=== PATIENT | female | born 1975 | race Caucasian/White ===

== ENCOUNTER 2017-08-09 21:42 | Emergency (ER) | payer OTHER ==
[2017-08-09 21:51] VITALS: RESP 16
[2017-08-09] MEDS ORDERED: NS 1,000 ML IV ONE (22:03)
--- NOTE | 2017-08-09 22:03 | EDPHY ---
H & P Stated Complaint: shaky, visual probs, face numb since chiropractic adjustment 5 d ago HPI/ROS: HPI CHIEF COMPLAINT: Shaky, eye shaking, lid shaking, numbness and tingling to face , neck pressure, headache HISTORY OF PRESENT ILLNESS: This patient is a 41-year-old female, significant past medical history for mi meningitis, HSV, otherwise healthy she presents emergency room with a constellation of symptoms. Patient reports to me that she had chiropractic neck manipulation for neck pain done on Friday. Early this week the next day after this manipulation she developed some facial numbness and tingling to her bilateral maxillary regions also eye fluttering as well as lead fluttering, and a headache. Denies any significant neck pain. Additionally she reports to me on Friday the day before neck manipulation she went to [facility] for chest pressure and shortness of breath and had a workup. She was released from there after she had a negative troponin D- dimer and nonischemic EKG. She distally tells me that she has been seen by a neurologist for rather defer neurological symptoms. They are unsure exactly what was causing her problem so they placed her on gabapentin. She followed up with her doctor Dr. Char Leroy with Infectious Disease who follows her for viral meningitis decided not to steak the gabapentin. She now presents to the emergency room stating that she needs to rule out vertebral artery dissection given that she had neck manipulation on Friday and developed worsening headache, eye fluttering, facial numbness and tingling. She is concerned she may have a vertebral artery dissection or posterior circulation stroke. Here in emergency room she appears very anxious. She is nontoxic. She has a normal neurological exam on exam. Past Medical History: Viral meningitis HSV Past Surgical History: No recent surgery Social History: Denies daily use of drugs alcohol tobacco products. Family History: Noncontributory ROS REVIEW OF SYSTEMS: A comprehensive 10 point review of systems is otherwise negative aside from elements mentioned in the history of present illness. Exam Constitutional appears well nontoxic, anxious, triage nursing summary reviewed , vital signs reviewed, awake/alert. Eyes normal conjunctivae and sclera, EOMI, PERRLA. HENT neck exam no carotid bruit visible. normal inspection, atraumatic, moist mucus membranes, no epistaxis, neck supple/ no meningismus, no raccoon eyes. Respiratory clear to auscultation bilaterally, normal breath sounds, no respiratory distress, no wheezing. Cardiovascular rate normal, regular rhythm, no murmur, no edema, distal pulses normal. Gastrointestinal soft, non-tender, no rebound, no guarding, normal bowel sounds, no distension, no pulsatile mass. Genitourinary no CVA tenderness. Musculoskeletal no midline vertebral tenderness, full range of motion, no calf swelling, no tenderness of extremities, no meningismus, good pulses, neurovascularly intact. Skin pink, warm, & dry, no rash, skin atraumatic. Neurologic I do not appreciate a focal neuro deficit, awake, alert and oriented x 3, AAOx3, moves all 4 extremities equally, motor intact, sensory intact, CN II-XII intact, normal cerebellar, normal vision, normal speech. Psychiatric normal mood/affect. Heme/Lymph/Immune no lymphadenopathy. Differential Diagnosis: Includes but is not limited to in a particular order acute anxiety, panic attack, electrolyte disturbance, thyroid dysfunction, vertebral artery dissection, posterior circulation stroke. Medical Decision Making: Plan for this patient IV establishment blood draw, IV fluid bolus, 1 mg Ativan for anxiety, CT angiogram head and neck, check thyroid , electrolytes, troponin, EKG. Re-evaluate. Re-evaluation: CT scan angiogram head and neck with IV contrast for vertebral artery dissection , posterior circulation stroke is unremarkable there is no dissection no stroke no thrombus no bleed. Unremarkable CT angiogram head and neck report called to me by Dr. Josué Whitt. Source: Patient - Personal History LMP (Females 10-55): 8-14 Days Ago Current Tetanus/Diphtheria Vaccine: Yes Current Tetanus Diphtheria and Acellular Pertussis (TDAP): Yes Tetanus Vaccine Date: 2009 - Medical/Surgical History Hx Asthma: No Hx Chronic Respiratory Disease: No Hx Diabetes: No Hx Cardiac Disease: No Hx Renal Disease: No Hx Cirrhosis: No Hx Alcoholism: No Hx HIV/AIDS: No Hx Splenectomy or Spleen Trauma: No Other PMH: viral meningitis x 3, cervical stenosis - Social History Smoking Status: Never smoked Constitutional: Initial Vital Signs Temperature (C) 36.5 C 08/09/17 21:47 Heart Rate 69 08/09/17 21:47 Respiratory Rate 16 08/09/17 21:47 Blood Pressure 140/82 H 08/09/17 21:47 O2 Sat (%) 100 08/09/17 21:47 O2 Delivery Mode Room Air Allergies/Adverse Reactions: ceftriaxone sodium [From Rocephin] Allergy (Severe, Verified 08/09/17 21:44) Swelling/neck,face,throat vancomycin [Vancomycin] Allergy (Severe, Verified 08/09/17 21:44) Swelling/neck,face,throat Home Medications: Medication Instructions Recorded Ferrous Sulfate [Ferrous Sulf 325 325 mg PO HS 04/18/16 MG (*)] Herbals/Supplements -Info Only 1 ea PO DAILY 04/18/16 Ibuprofen [Motrin (*)] 200 mg PO DAILY PRN 04/18/16 Valacyclovir HCl [Valtrex] 1,000 mg PO TID #39 tab 04/19/16 Medical Decision Making - Diagnostics Imaging Results: Imaging Impressions Head CTA 08/09/17 22:23 Impression: 1. No evidence for stenosis or dissection in either carotid artery or vertebral artery. 2. Degenerative disk and degenerative joint disease cervical spine most pronounced at C5-C6. Measurement of carotid stenosis is based on the residual internal carotid diameter with [place] Symptomatic Carotid Endarterectomy Trial (NASCET) based stenosis levels. CT Angiogram of the Brain Clinical Indications: Headache neck pain.. Symptoms since chiropractic adjustment on Friday. . Technique: CT angiogram of the brain was performed with the uneventful intravenous administration of 85 mL Isovue-370 contrast. Multiplanar reconstructions including 3D reconstructions performed and evaluated on [employer] workstation in order to better evaluate the knik of [place] vessels. Images were manipulated by the radiologist at the computer workstation. Dose reduction techniques were utilized. Findings: Major vessels of the knik of [place] are adequately displayed, demonstrating no evidence of aneurysm, vascular malformation, flow-limiting stenosis, or occlusion. Bilateral cavernous internal carotid arteries and vertebrobasilar system demonstrates no evidence of flow-limiting stenosis, aneurysm, occlusion or dissection. Superior sagittal sinus, transverse sinuses, and major veins demonstrate no evidence of intraluminal thrombi. Impression: Negative CT angiogram of the brain. Results called and discussed with Vince Prince MD at 08/09/2017 23:45. Neck CTA 08/09/17 22:23 Impression: 1. No evidence for stenosis or dissection in either carotid artery or vertebral artery. 2. Degenerative disk and degenerative joint disease cervical spine most pronounced at C5-C6. Measurement of carotid stenosis is based on the residual internal carotid diameter with [place] Symptomatic Carotid Endarterectomy Trial (NASCET) based stenosis levels. CT Angiogram of the Brain Clinical Indications: Headache neck pain.. Symptoms since chiropractic adjustment on Friday. . Technique: CT angiogram of the brain was performed with the uneventful intravenous administration of 85 mL Isovue-370 contrast. Multiplanar reconstructions including 3D reconstructions performed and evaluated on [employer] workstation in order to better evaluate the knik of [place] vessels. Images were manipulated by the radiologist at the computer workstation. Dose reduction techniques were utilized. Findings: Major vessels of the knik of [place] are adequately displayed, demonstrating no evidence of aneurysm, vascular malformation, flow-limiting stenosis, or occlusion. Bilateral cavernous internal carotid arteries and vertebrobasilar system demonstrates no evidence of flow-limiting stenosis, aneurysm, occlusion or dissection. Superior sagittal sinus, transverse sinuses, and major veins demonstrate no evidence of intraluminal thrombi. Impression: Negative CT angiogram of the brain. Results called and discussed with Vince Prince MD at 08/09/2017 23:45. - Data Points Laboratory Results: Laboratory Results 08/09/17 22:32 08/09/17 22:32 08/09/17 08/09/17 08/09/17 22:32 22:32 22:32 WBC 7.63 10^3/uL 10^3/uL (3.80-9.50) RBC 4.01 10^6/uL L 10^6/uL (4.18-5.33) Hgb 12.9 g/dL g/dL (12.6-16.3) Hct 37.7 % L % (38.0-47.0) MCV 94.0 fL fL (81.5-99.8) MCH 32.2 pg pg (27.9-34.1) MCHC 34.2 g/dL g/dL (32.4-36.7) RDW 12.0 % % (11.5-15.2) Plt Count 240 10^3/uL 10^3/uL (150-400) MPV 9.9 fL fL (8.7-11.7) Neut % (Auto) 58.2 % % (39.3-74.2) Lymph % (Auto) 34.7 % % (15.0-45.0) [place] % (Auto) 4.5 % % (4.5-13.0) Eos % (Auto) 1.6 % % (0.6-7.6) Baso % (Auto) 0.7 % % (0.3-1.7) Nucleat RBC Rel Count 0.0 % % (0.0-0.2) Absolute Neuts (auto) 4.45 10^3/uL 10^3/uL (1.70-6.50) Absolute Lymphs (auto) 2.65 10^3/uL 10^3/uL (1.00-3.00) Absolute Monos (auto) 0.34 10^3/uL 10^3/uL (0.30-0.80) Absolute Eos (auto) 0.12 10^3/uL 10^3/uL (0.03-0.40) Absolute Basos (auto) 0.05 10^3/uL 10^3/uL (0.02-0.10) Absolute Nucleated RBC 0.00 10^3/uL 10^3/uL (0-0.01) Immature Gran % 0.3 % % (0.0-1.1) Immature Gran # 0.02 10^3/uL 10^3/uL (0.00-0.10) PT 12.7 SEC SEC (12.0-15.0) INR 0.96 (0.83-1.16) Sodium 138 mEq/L mEq/L (134-144) Potassium 4.0 mEq/L mEq/L (3.5-5.2) Chloride 101 mEq/L mEq/L (97-110) Carbon Dioxide 24 mEq/l mEq/l (22-31) Anion Gap 13 mEq/L mEq/L (8-16) BUN 13 mg/dL mg/dL (7-23) Creatinine 0.7 mg/dL mg/dL (0.6-1.0) Estimated GFR > 60 Glucose 91 mg/dL mg/dL (70-100) Calcium 9.7 mg/dL mg/dL (8.5-10.4) Troponin I < 0.012 ng/mL ng/mL (0.000-0.034) TSH 2.370 uIU/mL uIU/mL (0.465-4.680) Medications Given: Discontinued Medications Sodium Chloride (Ns) 1,000 mls @ 0 mls/hr IV ONCE ONE; Wide Open PRN Reason: Protocol Stop: 08/09/17 22:04 Last Admin: 08/09/17 22:49 Dose: Not Given Lorazepam (Ativan Injection) 1 mg IVP EDNOW ONE Stop: 08/09/17 22:30 Last Admin: 08/09/17 23:02 Dose: 0.5 mg Departure - Departure Disposition: Home, Routine, Self-Care Clinical Impression: Paresthesias Headache Qualifiers: Headache type: unspecified Headache chronicity pattern: acute headache Intractability: not intractable Qualified Code(s): R51 - Headache Condition: Good Instructions: Paresthesia (ED), General Headache (ED) Additional Instructions: 1. Return emergency room if you have worsening symptoms questions or concerns includes worsening headache numbness or tingling. 2. Please follow up with your primary care doctor. Please follow up with Dr. Leroy. Referrals: Char Leroy MD [Primary Care Provider] - As per Instructions Rodney Luciano DO [Medical Doctor] - As per Instructions Max Herrera MD [Medical Doctor] - As per Instructions
[2017-08-09] MEDS ORDERED: LORazepam 2 MG/ML INJ IVP ONE (22:29)
[2017-08-09] MEDS ORDERED: IOPAMIDOL (ISOVUE 370) 100 ML BTL IV ONE (22:40)
[2017-08-09 22:41] LABS: % IMMATURE GRANULYOCYTES 0.3 % (0.0-1.1); ABSOLUTE IMMATURE GRANULOCYTES 0.02 10^3/uL (0.00-0.10); ADD DIFF? NO; ADD MORPH? NO; ADD SCAN? NO; ATYPICAL LYMPHOCYTE FLAG 10 (0-99); FRAGMENT RBC FLAG 0 (0-99); HEMATOCRIT 37.7 % (38.0-47.0); HEMOGLOBIN 12.9 g/dL (12.6-16.3); LEFT SHIFT FLG 0 (0-99); LIPEMIA HEMOLYSIS FLAG 90 (0-99); MEAN CELL HEMOGLOBIN 32.2 pg (27.9-34.1); MEAN CELL HEMOGLOBIN CONCENTR. 34.2 g/dL (32.4-36.7); MEAN PLATELET VOLUME 9.9 fL (8.7-11.7); PLATELET CLUMPS FLAG 0 (0-99); PLATELET COUNT 240 10^3/uL (150-400); RED BLOOD CELL COUNT 4.01 10^6/uL (4.18-5.33)
[2017-08-09 22:49] LABS: INR 0.96 (0.83-1.16); PROTIME(PATIENT) 12.7 SEC (12.0-15.0)
[2017-08-09 22:53] LABS: ANION GAP 13 mEq/L (8-16); CALCIUM 9.7 mg/dL (8.5-10.4); CARBON DIOXIDE 24 mEq/l (22-31); CHLORIDE 101 mEq/L (97-110); CREATININE 0.7 mg/dL (0.6-1.0); GLOMERULAR FILTRATION RATE > 60; GLUCOSE 91 mg/dL (70-100); SODIUM 138 mEq/L (134-144)
[2017-08-09 23:04] LABS: TROPONIN I < 0.012 ng/mL (0.000-0.034)
[2017-08-10 00:16] VITALS: BP 101/68; PULSE 63; TEMP 98.2; O2SAT 97
== END 2017-08-10 00:16 | disposition home or self-care (01) ==
DX: R51 Headache (principal); R20.2 Paresthesia of skin; R79.1 Abnormal coagulation profile
CPT/HCPCS: 86235-90; 96374; J2060; Q9967

== ENCOUNTER 2017-08-26 17:42 | Observation (INO) | payer OTHER ==
--- NOTE | 2017-08-26 18:16 | EDPHY ---
H & P Stated Complaint: neuro symptoms since beginning ogf oct/multiple mri/today bilat eye pain/di Time Seen by Provider: 08/26/17 18:16 HPI/ROS: HPI: This is a 41-year-old female who presents with Chief Complaint: neuro symptoms since beginning of oct/multiple mri/today bilat eye pain/di Location: Head Quality: Pain Duration: 1 month Signs and Symptoms: No fever, no chills, + paresthesias, + nausea, no vomiting , + vision changes, + dizziness, + chest pain Timing: Daily Severity: Moderate Context: Patient has a history of viral meningitis x3 last time occurring in April as well as cervical stenosis who presents with a constellation of neurological symptoms. She complains of sharp debilitating occipital headache pain that waxes and wane; vibratory sensation deep within her skull; pressure between both eyes with visual blurriness; bilateral arm and leg numbness and tingling; chest fluttering and palpitations. Denies any significant neck pain/ fever/chills/photophobia/noise sensitivity. She has been followed by a chiropractor for neck manipulation earlier in the month of August. There was some concern she may have a vertebral artery dissection of posterior circulation stroke. She was seen in the emergency room on 08/09/2017 with unremarkable labs as well as neck CTA, CTA of brain, MRI of brain. Today while she was seeing Dr. Char Leroy for follow-up her symptoms became quite severe. She has been on low-dose basically varus since her viral meningitis episode but it was stopped on Friday. Her symptoms have greatly worsened since Friday. Today lab tests were taken including Lyme disease outpatient by Dr. Char Leroy. Dr. Leroy is requesting a CT abdomen and pelvis scan to evaluate for any masses or abnormalities. She is also requesting for patient to be admitted to the hospital for further care. 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 CONSTITUTIONAL: Well-developed well-nourished, on articulate white female, awake and alert, no obvious distress HEENT: Atraumatic and normocephalic, PERRL, EOMI. Tympanic membranes clear. Oropharynx clear, no exudate and moist pink mucosa. Airway patent. No lymphadenopathy. No meningismus. Cardiovascular: Normal S1/S2, regular rate, regular rhythm, without murmur rub or gallop. PULMONARY/CHEST: Symmetrical and nontender. Clear to auscultation bilaterally. Good air movement. No accessory muscle usage. ABDOMEN: Soft, nondistended, nontender, no rebound, no guarding, no peritoneal signs, no masses or organomegaly. No CVAT. EXTREMITIES: 2/2 pulses, no deformities, no clubbing, no cyanosis or edema. NEUROLOGICAL: no focal neuro deficits. GCS 15. Normal cerebellar exam. Normal [id number] test. Normal [id number] test. Normal Romberg test. Cranial nerves 2-12 grossly intact. SKIN: Warm and dry, no erythema. no rash. Good capillary refill. Source: Patient, Family () Exam Limitations: No limitations - Personal History LMP (Females 10-55): 1-7 Days Ago Current Tetanus/Diphtheria Vaccine: Yes Tetanus Vaccine Date: 2009 - Medical/Surgical History Hx Asthma: No Hx Chronic Respiratory Disease: No Hx Diabetes: No Hx Cardiac Disease: No Hx Renal Disease: No Hx Cirrhosis: No Hx Alcoholism: No Hx HIV/AIDS: No Hx Splenectomy or Spleen Trauma: No Other PMH: viral meningitis x 3, cervical stenosis - Social History Smoking Status: Never smoked Constitutional: Initial Vital Signs Temperature (C) 36.7 C 08/26/17 17:51 Heart Rate 76 08/26/17 17:51 Respiratory Rate 20 08/26/17 17:51 Blood Pressure 126/95 H 08/26/17 17:51 O2 Sat (%) 100 08/26/17 17:51 O2 Delivery Mode Room Air Allergies/Adverse Reactions: ceftriaxone sodium [From Rocephin] Allergy (Severe, Verified 08/09/17 21:44) Swelling/neck,face,throat vancomycin [Vancomycin] Allergy (Severe, Verified 08/09/17 21:44) Swelling/neck,face,throat metoclopramide [From Reglan] Allergy (Verified 08/26/17 17:49) Home Medications: Medication Instructions Recorded Exedrin Migraine 08/26/17 Medical Decision Making ED Course/Re-evaluation: Labs, IV fluids, IV medications, CT abdomen and pelvis scan ordered Patient has a constellation of neurological symptoms; working diagnosis include MS, lupus, Lyme disease. Neurologic exam benign Spoke with Dr. Char Leroy who is requesting for patient to be admitted to the hospital for further care Spoke with hospitalist Dr. Kaylee De La Rosa who kindly accepts patient Differential Diagnosis: Headache including but not limited to subarachnoid hemorrhage, migraine headache , tension headache and infectious causes such as meningitis, pharyngitis and sinusitis. - Data Points Laboratory Results: Laboratory Results 08/26/17 18:25 08/26/17 18:25 08/26/17 08/26/17 08/26/17 18:25 18:25 18:25 WBC 8.71 10^3/uL 10^3/uL (3.80-9.50) RBC 3.70 10^6/uL L 10^6/uL (4.18-5.33) Hgb 12.4 g/dL L g/dL (12.6-16.3) Hct 34.6 % L % (38.0-47.0) MCV 93.5 fL fL (81.5-99.8) MCH 33.5 pg pg (27.9-34.1) MCHC 35.8 g/dL g/dL (32.4-36.7) RDW 11.9 % % (11.5-15.2) Plt Count 246 10^3/uL 10^3/uL (150-400) MPV 10.3 fL fL (8.7-11.7) Neut % (Auto) 70.0 % % (39.3-74.2) Lymph % (Auto) 24.5 % % (15.0-45.0) [place] % (Auto) 3.8 % L % (4.5-13.0) Eos % (Auto) 0.6 % % (0.6-7.6) Baso % (Auto) 0.9 % % (0.3-1.7) Nucleat RBC Rel Count 0.0 % % (0.0-0.2) Absolute Neuts (auto) 6.10 10^3/uL 10^3/uL (1.70-6.50) Absolute Lymphs (auto) 2.13 10^3/uL 10^3/uL (1.00-3.00) Absolute Monos (auto) 0.33 10^3/uL 10^3/uL (0.30-0.80) Absolute Eos (auto) 0.05 10^3/uL 10^3/uL (0.03-0.40) Absolute Basos (auto) 0.08 10^3/uL 10^3/uL (0.02-0.10) Absolute Nucleated RBC 0.00 10^3/uL 10^3/uL (0-0.01) Immature Gran % 0.2 % % (0.0-1.1) Immature Gran # 0.02 10^3/uL 10^3/uL (0.00-0.10) ESR 7 MM/HR MM/HR (0-20) Sodium 140 mEq/L mEq/L (134-144) Potassium 3.8 mEq/L mEq/L (3.5-5.2) Chloride 105 mEq/L mEq/L (97-110) Carbon Dioxide 23 mEq/l mEq/l (22-31) Anion Gap 12 mEq/L mEq/L (8-16) BUN 8 mg/dL mg/dL (7-23) Creatinine 0.7 mg/dL mg/dL (0.6-1.0) Estimated GFR > 60 Glucose 111 mg/dL H mg/dL (70-100) Calcium 9.8 mg/dL mg/dL (8.5-10.4) Beta HCG, Qual NEGATIVE Medications Given: Discontinued Medications Sodium Chloride (Ns) 1,000 mls @ 0 mls/hr IV ONCE ONE; Wide Open PRN Reason: Protocol Stop: 08/26/17 18:23 Last Admin: 08/26/17 18:31 Dose: Not Given Departure - Departure Disposition: [facility] In[facility] Acute Clinical Impression: Intractable headache Qualifiers: Headache type: unspecified Headache chronicity pattern: acute headache Qualified Code(s): R51 - Headache
[2017-08-26] MEDS ORDERED: NS 1,000 ML IV ONE (18:22)
[2017-08-26 18:33] LABS: % IMMATURE GRANULYOCYTES 0.2 % (0.0-1.1); ABSOLUTE IMMATURE GRANULOCYTES 0.02 10^3/uL (0.00-0.10); ADD DIFF? NO; ADD MORPH? NO; ADD SCAN? NO; ATYPICAL LYMPHOCYTE FLAG 0 (0-99); FRAGMENT RBC FLAG 0 (0-99); HEMATOCRIT 34.6 % (38.0-47.0); HEMOGLOBIN 12.4 g/dL (12.6-16.3); LEFT SHIFT FLG 0 (0-99); LIPEMIA HEMOLYSIS FLAG 90 (0-99); MEAN CELL HEMOGLOBIN 33.5 pg (27.9-34.1); MEAN CELL HEMOGLOBIN CONCENTR. 35.8 g/dL (32.4-36.7); MEAN CELL VOLUME 93.5 fL (81.5-99.8); MEAN PLATELET VOLUME 10.3 fL (8.7-11.7); PLATELET CLUMPS FLAG 0 (0-99); PLATELET COUNT 246 10^3/uL (150-400); RED CELL DISTRIBUTION WIDTH 11.9 % (11.5-15.2)
[2017-08-26 18:47] LABS: ANION GAP 12 mEq/L (8-16); CALCIUM 9.8 mg/dL (8.5-10.4); CARBON DIOXIDE 23 mEq/l (22-31); CHLORIDE 105 mEq/L (97-110); CREATININE 0.7 mg/dL (0.6-1.0); GLOMERULAR FILTRATION RATE > 60; GLUCOSE 111 mg/dL (70-100); POTASSIUM 3.8 mEq/L (3.5-5.2); SODIUM 140 mEq/L (134-144)
[2017-08-26 19:06] LABS: SEDIMENTATION RATE 7 MM/HR (0-20)
[2017-08-26] MEDS ORDERED: IOPAMIDOL (ISOVUE-300) 100 ML BTL ONE (19:08)
[2017-08-26] MEDS ORDERED: ACETAMINOPHEN 325 MG TAB PO PRN (22:14)
[2017-08-26] MEDS ORDERED: ONDANSETRON 4 MG/2 ML VIAL IVP PRN (22:14)
[2017-08-26] MEDS ORDERED: ONDANSETRON DISINTEGRATING 4 MG TAB PO PRN (22:14)
--- NOTE | 2017-08-27 | PDGENHP ---
History and Physical - Chief Complaint Headache - History of Present Illness 41 yo F w/ complicated recent clinical course presents to ED with headache. Patient saw Dr Leroy today (ID) who suggested patient go to ED. Her symptoms are broad and cover several organ systems. She notes that she first noted ESPINAL and mild chest discomfort on August 03. On August 04 she had a chiropractic adjustment. The following day she began to experience "head pressure", mostly involving her temples and behind her eyes; she denies significant photo/ phonophobia. Since, she has experienced this head pressure daily in varying severity. She has also developed paresthesias involving her face as well as upper and lower extremities. Of note, she has had three cases of viral meningitis, most recently in April of 2017. Today she denies fever, chills, rash , joint pains, new neck stiffness/pain, weight loss, and night sweats. She is currently under significant stress as her son is undergoing treatment for leukemia. Her work-up for this has been extensive and includes visits to ID, neurology, and ENT consultants. Imaging studies here include MRI brain, CTA neck, and CT A/ P without clear etiology. MRI does show several hemispheric deep white matter lesions, but these are stable from prior and no acute changes found. She reports additional work-up at other institutions ([facility]) to include MRI/MRA and LPs. Her most recent LP was at [facility] on 08/10 and was reportedly normal with normal opening pressure. She was on prophylactic Valacyclovir until a few days ago per ID Dr. Leroy. Discontinuation of this medication offered no relief. History Information - Allergies/Home Medication List Allergies/Adverse Reactions: ceftriaxone sodium [From Rocephin] Allergy (Severe, Verified 08/09/17 21:44) Swelling/neck,face,throat metoclopramide [From Reglan] Allergy (Severe, Verified 08/26/17 20:10) Tremors, elevated HR vancomycin [Vancomycin] Allergy (Severe, Verified 08/09/17 21:44) Swelling/neck,face,throat Home Medications: Acetaminophen/ASA/Caffeine [Excedrin Tablet (*)] 1 each PO DAILY PRN 08/26/17 [ Last Taken 08/26/17 13:00] Ibuprofen [Motrin (*)] 200 - 600 mg PO Q4-6PRN PRN 10/24/17 [Last Taken 08/24/17 ] Valacyclovir HCl [Valtrex] 1,000 mg PO DAILY@20 08/26/17 [Last Taken 08/20/17] I have personally reviewed and updated: family history, medical history - Past Medical History Additional medical history: Viral meningitis x3, 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 ) - Family History Additional family history: Asked, denies - Social History Smoking Status: Never smoked Review of Systems Review of Systems: ROS: 10pt was reviewed & negative except for what was stated in HPI & below Physical Exam Physical Exam: Temp Pulse Resp BP Pulse Ox 36.7 C 62 16 130/94 H 99 08/26/17 20:53 08/26/17 20:53 08/26/17 20:53 08/26/17 20:53 08/26/17 20:53 Constitutional: no apparent distress, appears nourished Eyes: PERRL, EOMI Ears, Nose, Mouth, Throat: moist mucous membranes, no oral mucosal ulcers Cardiovascular: regular rate and rhythym, no murmur, rub, or gallop Respiratory: no respiratory distress, no rales or rhonchi Gastrointestinal: normoactive bowel sounds, soft, non-tender abdomen Skin: warm, normal color Musculoskeletal: full muscle strength, no muscle tenderness Neurologic: AAOx3, sensation intact bilaterally, CN II-XII Intact, other ( Cerebellar function intact), No weakness, No numbness, No pronator drift, No facial droop Psychiatric: interacting appropriately, not anxious Lab Data & Imaging Review 08/26/17 18:25 08/26/17 18:25 WBC 8.71 10^3/uL (3.80-9.50) 08/26/17 18:25 RBC 3.70 10^6/uL (4.18-5.33) L 08/26/17 18:25 Hgb 12.4 g/dL (12.6-16.3) L 08/26/17 18:25 Hct 34.6 % (38.0-47.0) L 08/26/17 18:25 MCV 93.5 fL (81.5-99.8) 08/26/17 18:25 MCH 33.5 pg (27.9-34.1) 08/26/17 18:25 MCHC 35.8 g/dL (32.4-36.7) 08/26/17 18:25 RDW 11.9 % (11.5-15.2) 08/26/17 18:25 Plt Count 246 10^3/uL (150-400) 08/26/17 18:25 MPV 10.3 fL (8.7-11.7) 08/26/17 18:25 Neut % (Auto) 70.0 % (39.3-74.2) 08/26/17 18:25 Lymph % (Auto) 24.5 % (15.0-45.0) 08/26/17 18:25 Pitkin % (Auto) 3.8 % (4.5-13.0) L 08/26/17 18:25 Eos % (Auto) 0.6 % (0.6-7.6) 08/26/17 18:25 Baso % (Auto) 0.9 % (0.3-1.7) 08/26/17 18:25 Nucleat RBC Rel Count 0.0 % (0.0-0.2) 08/26/17 18:25 Absolute Neuts (auto) 6.10 10^3/uL (1.70-6.50) 08/26/17 18:25 Absolute Lymphs (auto) 2.13 10^3/uL (1.00-3.00) 08/26/17 18:25 Absolute Monos (auto) 0.33 10^3/uL (0.30-0.80) 08/26/17 18:25 Absolute Eos (auto) 0.05 10^3/uL (0.03-0.40) 08/26/17 18:25 Absolute Basos (auto) 0.08 10^3/uL (0.02-0.10) 08/26/17 18:25 Absolute Nucleated RBC 0.00 10^3/uL (0-0.01) 08/26/17 18: Immature Gran % 0.2 % (0.0-1.1) 08/26/17 18:25 Immature Gran # 0.02 10^3/uL (0.00-0.10) 08/26/17 18:25 ESR 7 MM/HR (0-20) 10/24/17 18:25 Sodium 140 mEq/L (134-144) 08/26/17 18:25 Potassium 3.8 mEq/L (3.5-5.2) 08/26/17 18:25 Chloride 105 mEq/L (97-110) 08/26/17 18:25 Carbon Dioxide 23 mEq/l (22-31) 08/26/17 18:25 Anion Gap 12 mEq/L (8-16) 08/26/17 18:25 BUN 8 mg/dL (7-23) 08/26/17 18:25 Creatinine 0.7 mg/dL (0.6-1.0) 08/26/17 18:25 Estimated GFR > 60 08/26/17 18:25 Glucose 111 mg/dL (70-100) H 08/26/17 18:25 Calcium 9.8 mg/dL (8.5-10.4) 08/26/17 18:25 Beta HCG, Qual NEGATIVE 08/26/17 18:25 Imaging Review: CT A/P without acute abnormality Assessment & Plan Assessment: 41 yo F presents with 3 week history of headaches and paresthesias of unclear etiology. Plan: 1. Headache, paresthesias, fatigue - Constellation of symptoms unlikely to be explained by single lesion noting headache, fatigue, and diffuse paresthesias. MRI brain does show hemispheric white matter lesions but these are nonspecific. Neurologic exam unremarkable. Patient reports recent LP at [facility] on 08/10 that was normal with normal opening pressure. Diagnostic considerations include MS, other autoimmune etiology, less likely infection, atypical migraines , and IIH, although opening pressure reportedly normal at OSH. - ESR normal in ED, will also check CRP - Laboratory review: Lyme serologies pending; TSH, cortisol, prolactin, LH/FSH, KELSI, anti-SM, A1c, ferritin, Vit D, B-HCG, RPR all WNL - Would be helpful to obtain records from [facility] and [facility] - Neurology consult placed to help direct further work-up and consider utility of repeat LP - Consider ophthalmology consult Diet - Regular Code - Full Ppx - SCDs Dispo - Admit to observation status
[2017-08-27 05:11] LABS: % IMMATURE GRANULYOCYTES 0.3 % (0.0-1.1); ABSOLUTE IMMATURE GRANULOCYTES 0.02 10^3/uL (0.00-0.10); ADD DIFF? NO; ADD MORPH? NO; ADD SCAN? NO; ATYPICAL LYMPHOCYTE FLAG 0 (0-99); FRAGMENT RBC FLAG 0 (0-99); HEMATOCRIT 35.8 % (38.0-47.0); HEMOGLOBIN 12.5 g/dL (12.6-16.3); LEFT SHIFT FLG 0 (0-99); LIPEMIA HEMOLYSIS FLAG 90 (0-99); MEAN CELL HEMOGLOBIN 33.5 pg (27.9-34.1); MEAN CELL HEMOGLOBIN CONCENTR. 34.9 g/dL (32.4-36.7); MEAN PLATELET VOLUME 10.2 fL (8.7-11.7); PLATELET CLUMPS FLAG 0 (0-99); PLATELET COUNT 231 10^3/uL (150-400); RED BLOOD CELL COUNT 3.73 10^6/uL (4.18-5.33); RED CELL DISTRIBUTION WIDTH 11.9 % (11.5-15.2)
[2017-08-27 05:20] LABS: POTASSIUM 4.3 mEq/L (3.5-5.2)
[2017-08-27 05:23] LABS: ANION GAP 14 mEq/L (8-16); C-REACTIVE PROTEIN < 5.0 mg/L (<10.0); CALCIUM 9.4 mg/dL (8.5-10.4); CARBON DIOXIDE 29 mEq/l (22-31); CHLORIDE 101 mEq/L (97-110); CREATININE 0.8 mg/dL (0.6-1.0); GLOMERULAR FILTRATION RATE > 60; GLUCOSE 97 mg/dL (70-100); SODIUM 144 mEq/L (134-144)
--- NOTE | 2017-08-27 08:43 | PCMIDPN ---
Assessment/Plan: # History of recurrence HSV meningitis. Recent LP 2 weeks ago was normal (see below) # Unclear syndrome of LEI, "dizziness," chest tightness, and paraesthesia progressively worsening, preventing normal activities. CT ab/pelvis negative; cortisol, E, P, LH non diagnostic; EBV serologies suggest past infection; autoimmune studies negative (some collected at OSH), --repeat HIV testing --Contemplation of paraneoplastic syndrome: discussion with Oncology would recommend SPEP, immunoglobulin panel and chest CT to eval for lung mass and eval mediastinum --neurology recommending MRI of the T and C-spine and empiric steroids. 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 Recent history includes presentation of symptoms in April of 2017 consistent with recurrent meningitis. Patient was started on high dose of Valtrex and had rapid improvement in symptoms. Following this episode due to proximity of last episode in 2015 was decided to initiate prophylactic Valtrex 1 g daily mid May. 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 She presented to me August 06 after a week to 10 days of development of severe fatigue difficulty tolerating exercise due to chest tightness and associated palpitations. She also describes a pressure-like sensation and a feeling of being over caffeinated, similar to dizziness. She also felt that her eyes were not working together. Since that time her symptoms not remitted in any way and her headache or head pressure, particularly behind her eyes has worsened. The symptoms are keeping her from sleep. Most recently she has had significant anorexia but no weight loss. She has not exercised for 1 month. Head pressure last night was described as 8/10 pain. She does get some very mild relief from Advil. As a therapeutic intervention Valtrex was stopped 08/22/2017 but her symptoms have become progressive since that discontinuation. She has had multiple ER presentations and multiple evaluations including from 2 separate neurologists, ophthalmology, cardiology. She has had 2 contrasted MRIs of her brain both showing stable deep hemispheric white matter lesion changes bilaterally but this is not consistent with multiple sclerosis. She has also had a normal MR venogram of her brain, a CTA of her neck and head. Laboratory studies show a mild normocytic anemia that has slightly worsened over time. Normal white count at 8.7 with a normal differential 70% neutrophils and 24% lymphocytes. Outside records show: Lyme Western blot IgG, IgM negative, negative rheumatoid arthritis negative CCP antibodies, AST 32, ALT 15, the following antibodies are also negative: anti-dsDNA, Antihistamine, [employer], [place], KELSI. EBV testing demonstrates past infection. CRP 0.5 Lumbar puncture 08/11/2017 RBC 1, WBC 0, glucose 61, protein 44. Culture is negative Objective: Vital Signs Temp Pulse Resp BP Pulse Ox 36.6 C 54 L 16 109/70 98 08/27/17 05:09 08/27/17 05:09 08/27/17 05:09 08/27/17 05:09 08/27/17 05:09 Laboratory Results 08/27/17 04:53 08/27/17 04:53 08/26/17 08/27/17 08/28/17 05:59 05:59 05:59 Intake Total 250 Balance 250 ESR 7 MM/HR (0-20) 08/26/17 18:25 C-Reactive Protein < 5.0 mg/L (<10.0) 08/27/17 04:53 Laboratory Tests 08/09/17 08/09/17 22:31 22:31 KELSI Screen 0.41 Sm ([place]) IgG Ab, Quant <0.2 Laboratory Tests 08/26/17 10:30 Luteinizing Hormone 9.24 Prolactin 9.2 Progesterone 1.11 Cortisol AM Sample 10.8 - Physical Exam General Appearance: alert, no apparent distress Respiratory: No accessory muscle use Neck: supple Skin: No rash Neuro/Psych: alert, normal mood/affect, oriented x 3, No motor weakness - Time Spent With Patient Time Spent with Patient: greater than 35 minutes Time Spent with Patient: Greater than 35 minutes spent on this patients care, greater than 50% of time spent counseling, educating, and coordinating care regarding the above mentioned plan. ICD10 Worksheet Patient Problems: Problems Problem Status Onset Spinal stenosis of cervical region Acute Intractable headache Acute Meningitis Acute
[2017-08-27] MEDS ORDERED: methylPREDNISolone SOD SUCC 500 MG in D5W 100 ML IV ONE (09:45)
[2017-08-27] MEDS ORDERED: IOPAMIDOL (ISOVUE-300) 100 ML BTL ONE (10:22)
[2017-08-27 11:36] LABS: % SATURATION 17 % (20-55); TOTAL IRON BINDING CAPACITY 285 ug/dL (260-490)
--- NOTE | 2017-08-27 11:47 | ASMTCMCOM ---
CM Note CM Note Notes: Chart reviewed and d/w RN. Anticipate home w/ at dc w/no CM needs. CM available for changes/needs. Date Signed: 08/27/2017 11:46 AM Electronically Signed By:Sanjuana Cunha RN
[2017-08-27 11:59] LABS: FERRITIN - BCH 12.2 ng/mL (6.2-264.0)
[2017-08-27] MEDS ORDERED: GADOBUTROL 10 ML VIAL IVP ONE (15:10)
[2017-08-27] MEDS ORDERED: ACETAMINOPHEN/ASA/CAFFEINE 1 EACH TAB PO PRN (16:10)
[2017-08-27 16:15] VITALS: BP 129/81; PULSE 67; RESP 18; TEMP 97.8; O2SAT 98
--- NOTE | 2017-08-27 20:24 | GDS ---
[f rep st] DISCHARGE SUMMARY DIAGNOSES: 1. Recurrent herpes simplex virus meningitis. 2. 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 3. Syndrome of headache, dizziness. 4. Iron deficiency anemia. HOSPITAL COURSE: A 41-year-old female, presents with symptoms as described above. She had been eval uated in the outpatient setting by Dr. Leroy. Evaluated here by Dr. Rivera. MRI of her C-spine notable for severe C5-6 stenosis. Recommend consultation with neurosurgeon. She has been given a re ferral to see Dr. Dean. Spinal cord finding explained her neck pain, and paresthesias. Do not exp aisha the rest of the syndrome. Dr. Rivera is suspicious for an inflammatory sequelae of her recur rent HSV meningitis. Because of this, recommends a taper of prednisone over 9 days. She is given a prescription for this. She should follow up with Dr. Rivera at the end of this taper. She has be en given these instructions. She does have mild iron deficiency anemia. I recommend following up with the PCP, considering starti ng iron in addition to appropriate additional workup. STUDIES PENDING AT THE TIME OF DISCHARGE: 1. SPEP. 2. Immunoglobulins. 3. Tularensis titer. FOLLOW UP: 1. Dr. Leroy for recurrent HSV meningitis. 2. Dr. Pascual Rivera for her spinal stenosis as well as response to steroids. 3. Dr. Dean for her spinal stenosis. /[id number]/MODL
--- NOTE | 2017-08-28 00:49 | GCON ---
[f rep st] CONSULTATION HISTORY OF PRESENT ILLNESS: The patient is a 41-year-old woman whom I am asked to see in neurologic consultation from the hospitalist service and also Dr. Char Leroy regarding symptoms that have inclu ded head pain or pressure, as well as other neurologic symptoms. She has an extremely complex case, and we reviewed her history, as well as details of prior evaluations. Her problem has been character ized by recent development of paresthesias in the upper extremities and some pain in her back and als o periods of rather intense pressure behind the eyes. She has had a history of laboratory-proven HSV -2 meningitis with a recurrence on 2 occasions, but not definite on the followup in terms of labs, bu t definite elevation of white count and then a more recent event presumed to be recurrent meningitis without doing a lumbar puncture, for which she was receiving antiviral therapy from Dr. Leroy. The patient has had full neurologic assessments through our outpatient practice and also another consulta tion with [facility] recently, and everything has been summarized in those notes and I have r eviewed all that, as well. She has had repeated imaging of the brain and blood vessels without seein g anything clearly identifiable as a cause to her symptoms. She tells me that in the past she has be en told that she has some cervical spinal stenosis, but has not been imaged for many years, she says. She denies any symptoms by simply neck flexion. Currently, she feels as of these symptoms are a bi t different than the meningitis symptoms, which often fully resolve. It is the paresthesias in the e xtremities that seems different, as well as emphasis on some of the back discomfort and this distribu tion of head pain is different. She recently had a lumbar puncture that showed no elevation of press ure and no elevation of white cells. This was at [facility]. She has had some very mild nonspecific white matter changes seen in the brain MRIs, but nothing else more specific and has not h ad a recent cervical spine or thoracic spine MRI. PAST MEDICAL HISTORY: Her past medical history is as outlined above, and she was recently taken off suppressive antiviral therapy because of symptoms to determine whether these recent problems over the last 3 weeks might simply be related to the side effects of the valacyclovir. In any case, stopping it 4-5 days ago has not helped the symptoms. 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 Life has been dramatically changed recently because of all these recurrent episodes . She usually has a prodrome, according to Dr. Leroy, where there will be an outbreak of herpes sim plex over the buttocks. She has not had that with this particular episode. FAMILY HISTORY: Unremarkable. SOCIAL HISTORY: No smoking. MEDICATIONS: Currently in the hospital, she is taking Tylenol and Zofran. ALLERGIES: She has had reactions to ceftriaxone, Reglan, and vancomycin in the past. PHYSICAL EXAMINATION: VITAL SIGNS: She is not having fever now. The current vital signs, temperatu re 36.4, pulse of 68, blood pressure 136/92. GENERAL: She is well developed, in no acute distress. EYES: Clear. NECK: Supple with no bruits or masses. CARDIAC: Regular rate and rhythm. No murmur . NEUROLOGIC: Good range of motion in the neck with no Lhermitte sign. Pupils 4 mm and reactive. Extraocular movements are intact. Normal facial sensation and strength. Hearing is preserved. Elle r exam: Normal muscle bulk and tone. 5/5 strength. No sensory loss. She has a slow, but steady ga it, and is able to walk heel-to-toe. Reflexes are 1+ throughout. LABORATORY DATA: Recent laboratory studies are showing white count of 7000 today, hematocrit of 35%. Her sed rate yesterday was 7. CRP is normal. Other labs have been unremarkable. Tox screen is un remarkable. Negative KELSI and several additional studies are pending. IMPRESSION: Today's visit was predominantly counseling regarding her condition and management mira merida moving forward. The total unit time was 90 minutes, with greater than 50% of that time in face- to-face discussion with her and her about all the complex questions her case raises. In orde r to further evaluate the situation, I have ordered MRI of the cervical and thoracic spine to make tabares re there is no additional problem that might explain the symptoms, such as worsening spinal stenosis or lesions of the spinal cord. Overall, I would favor a smoldering effect of inflammation from her c hronic, recurrent herpes simplex virus-associated meningitis. The lack of active CSF findings argues against this being an acute attack of meningitis. She is certainly vulnerable for variable symptoms associated with having this in the past, so we are working on the theory that antiinflammatory with prednisone may be productive. Dr. Leroy does not suspect any occult infection, but she is also comp leting the workup with CT scan of the chest. More malignant processes such as neoplasia or vasculiti s are felt to be less likely based on this overall clinical picture in which she lacks fever or any s pecific end-organ damage or other prominent markers. The findings on MRI were reviewed with the gabriel ent and just represent some mild nonspecific white matter change, not indicative of demyelination. I will plan to follow her along and see if we can help her and plan to give the 500 mg IV Solu-Medrol followed by oral prednisone to see if that can stabilize the situation and then follow up on imaging of the cervical and thoracic spinal cord. /[id number]/MODL
[2017-08-28 13:52] LABS: HEPATITIS Bs Ab QUANT <5.0 mIU/mL
--- NOTE | 2017-08-28 17:15 | ASDISCHSUM ---
Discharge Information Plan Status: Medically Cleared to Leave: Discharge Date:08/27/2017 06:31 PM CM D/C Disposition: ADT D/C Disposition:Home, Routine, Self-Care Projected Discharge Date:08/27/2017 06:31 PM Transportation at D/C: Discharge Delay Reason: Follow-Up Date:08/27/2017 06:31 PM Discharge Slot: Final Diagnosis: Placement Information Patient Contact Information Contact Name:MINI Relationship: Address:[address] City:[place] Alternate Phone: State/Zip Code:[place] [address] Email: Financial Information Financial Class:HMO and PPO Plans Primary Plan Desc:[facility] Primary Plan Number:[id number] Secondary Plan Desc: Secondary Plan Number: Assessment Information [facility] CM Progress Note CM Note CM Note Notes: Chart reviewed and d/w RN. Anticipate home w/ at dc w/no CM needs. CM available for changes/needs. Date Signed: 08/27/2017 11:46 AM Electronically Signed By:Sanjuana Cunha RN Intervention Information
[2017-08-28 17:51] LABS: IMMUNOGLOBULIN A 115 mg/dL (61 - 356); IMMUNOGLOBULIN G 1070 mg/dL (767 - 1590); IMMUNOGLOBULIN M 94 mg/dL (37 - 286)
[2017-08-30 15:33] LABS: FRANCISELLA (TULAREMIA) AB <1:20
== END 2017-08-27 18:31 | disposition home or self-care (01) ==
LOC: F1N 19:59
PROVIDERS: ADMIT Internal Medicine; ATTEND Student in an Organized Health Care Education/Training Program
DX: B00.3 Herpesviral meningitis (principal); G03.2 Benign recurrent meningitis [Mollaret]; R51 Headache; R20.2 Paresthesia of skin; R42 Dizziness and giddiness; R29.818 Other symptoms and signs involving the nervous system; D50.9 Iron deficiency anemia, unspecified; M48.02 Spinal stenosis, cervical region; G95.20 Unspecified cord compression; Z86.61 Personal history of infections of the central nervous system; Z88.1 Allergy status to other antibiotic agents
CPT/HCPCS: 71260; 72156; 72157; 74177; 99285; G0378; 80305; 82607-90; 82784-90; 86668-90; A9585; G0472; J2930; Q9967

== ENCOUNTER → 2017-09-19 | Outpatient (CLI) | payer OTHER ==
[~2017-09-19] MED LIST: LIDOCAINE 1% 300 MG/30 ML SDV ONE; NA BICARBONATE 50 MEQ/50 ML VIAL ONE
[2017-09-19 13:24] LABS: CSF APPEARANCE CLEAR (CLEAR); CSF COLOR COLORLESS (COLORLESS); WBC, CSF 0 /mm3 (0-5)
[2017-09-19 13:32] LABS: PROTEIN, CSF 46 mg/dL (12-60)
== END ==
LOC: FIMAGING 10:29
PROVIDERS: ATTEND Internal Medicine Infectious Disease
PROC: 009U3ZX Drainage of Spinal Canal, Percutaneous Approach, Diagnostic (ICD-10-PCS; principal; 2017-09-19)
DX: R51 Headache (principal); H53.9 Unspecified visual disturbance

== ENCOUNTER → 2017-09-20 | Outpatient (CLI) | payer OTHER | LOC: FIMAGING 09:36 | PROVIDERS: ATTEND Internal Medicine Infectious Disease | DX: M50.322 Other cervical disc degeneration at C5-C6 level (principal); M48.02 Spinal stenosis, cervical region; M99.71 Connective tissue and disc stenosis of intervertebral foramina of cervical region; R90.89 Other abnormal findings on diagnostic imaging of central nervous system ==

== ENCOUNTER 2017-10-20 13:33 | Day surgery (SDC) | payer OTHER ==
[2017-10-20] MEDS ORDERED: IOPAMIDOL (ISOVUE-M 300) 15 ML VIAL ONE ×2 (15:35→16:32)
[2017-10-20] MEDS ORDERED: IOPAMIDOL (ISOVUE-300) 100 ML BTL ONE (16:18)
== END 2017-10-20 17:15 | disposition home or self-care (01) ==
LOC: FIMAGING 13:33
PROVIDERS: ATTEND Internal Medicine Infectious Disease
PROC: 3E0S3GC Introduction of Other Therapeutic Substance into Epidural Space, Percutaneous Approach (ICD-10-PCS; principal; 2017-10-20)
PROC: B51M1ZZ Fluoroscopy of Right Upper Extremity Veins using Low Osmolar Contrast (ICD-10-PCS; principal; 2017-10-20)
DX: R51 Headache (principal)
CPT/HCPCS: 36005; 62273; 75820; C1769; Q9967